=== PATIENT | female | born 1960 | race American Indian/Alaskan Native ===

== ENCOUNTER 2018-06-04 00:12 | Emergency (ER) | payer OTHER ==
[2018-06-04] MEDS ORDERED: ASPIRIN PO ONE (00:42)
[2018-06-04 00:58] LABS: Basophils % (Auto) 0.9 % (0.0-1.8); Eosinophils # (Auto) 0.3 K/mm3 (0.0-0.4); Eosinophils % (Auto) 5.6 % (0.0-4.3); Hematocrit 37.9 % (30.3-42.9); Hemoglobin 13.1 gm/dl (10.1-14.3); Lymphocytes # (Auto) 2.1 K/mm3 (1.2-5.4); Lymphocytes % (Auto) 42.2 % (13.4-35.0); Mean Corpuscular HGB Conc 35 % (30-34); Mean Corpuscular Volume 92 fl (79-97); Monocytes # (Auto) 0.2 K/mm3 (0.0-0.8); Monocytes % (Auto) 4.9 % (0.0-7.3); Platelet Count 221 K/mm3 (140-440); Red Cell Distribution Width 13.5 % (13.2-15.2)
[2018-06-04 01:29] LABS: BUN/Creatinine Ratio 25; Blood Urea Nitrogen 20 mg/dL (7-17); Calcium 8.9 mg/dL (8.4-10.2); Hemolysis Index 7
--- NOTE | 2018-06-04 01:31 | XRay Report ---
PROCEDURE: XR CHEST 1V AP TECHNIQUE: Chest radiograph single view. HISTORY: Chest Pain COMPARISONS: None . FINDINGS: Heart: Normal. Mediastinum/Vessels: Normal. Lungs/Pleural space: Normal. Bony thorax: No acute osseous abnormality. Life support devices: None. IMPRESSION: No acute cardiopulmonary abnormality. This document is electronically signed by Pastor Bar MD., June 04 2018 01:29:23 AM ET
[2018-06-04] MEDS ORDERED: IBUPROFEN PO ONE (03:57)
--- NOTE | 2018-06-04 03:57 | Emergency Department Report ---
ED Chest Pain HPI - General Chief Complaint: Chest Pain Stated Complaint: CHEST TIGHTNESS/LEFT LEG PAIN Time Seen by Provider: 06/04/18 02:30 Source: patient Mode of arrival: Ambulatory Limitations: No Limitations - History of Present Illness Initial Comments: Mrs. Daigle is a very pleasant healthy 57-year-old female with history of panic attacks who presents with left knee pain and chest pain. While walking she developed posterior left knee pain sharp pain. Mild swelling. No history of previous injury or arthritis. She then develop nondescript dull chest pain. Chest pain fleeting in nature. Not associated with inspiration or exertion. Severity scale (0 -10): 4 - Related Data Allergies Allergy/AdvReac Type Severity Reaction Status Date / Time No Known Allergies Allergy Verified 06/04/18 02:30 Heart Score - HEART Score History: Slightly suspicious EKG: Normal Age: 45-65 Risk factors: 1-2 risk factors Troponin: < normal limit HEART Score: 2 ED Review of Systems ROS: Stated complaint: CHEST TIGHTNESS/LEFT LEG PAIN Other details as noted in HPI Comment: All other systems reviewed and negative Constitutional: denies: fever Eyes: denies: eye discharge Respiratory: denies: cough Cardiovascular: chest pain ED Past Medical Hx - Past Medical History Previous Medical History?: Yes Hx Hypertension: Yes - Surgical History Past Surgical History?: Yes Additional Surgical History: Tonsillectomy - Social History Smoking Status: Never Smoker Substance Use Type: None ED Physical Exam - General Limitations: No Limitations General appearance: alert, in no apparent distress - Head Head exam: Present: atraumatic, normocephalic - Eye Eye exam: Present: normal appearance - ENT ENT exam: Present: mucous membranes moist - Neck Neck exam: Present: normal inspection, full ROM - Respiratory Respiratory exam: Present: normal lung sounds bilaterally. Absent: respiratory distress, wheezes, rales, rhonchi - Cardiovascular Cardiovascular Exam: Present: regular rate, normal rhythm, normal heart sounds. Absent: systolic murmur, diastolic murmur, rubs, gallop - GI/Abdominal GI/Abdominal exam: Present: soft, normal bowel sounds. Absent: distended, tenderness, guarding, rebound - Extremities Exam Extremities exam: Present: other (left knee +effusion +crepitus no erythema no tenderness full range of motion of laxity) - Back Exam Back exam: Present: normal inspection - Neurological Exam Neurological exam: Present: alert, oriented X3 - Psychiatric Psychiatric exam: Present: normal affect, normal mood - Skin Skin exam: Present: warm, dry, intact, normal color. Absent: rash ED Course Vital Signs 06/04/18 06/04/18 06/04/18 00:29 00:40 02:29 Temperature 97.6 F 97.6 F Pulse Rate 72 63 Respiratory 18 16 18 Rate Blood Pressure 182/90 Blood Pressure 182/90 [Left] O2 Sat by Pulse 98 99 Oximetry 06/04/18 02:47 Temperature Pulse Rate 66 Respiratory 14 Rate Blood Pressure 178/91 Blood Pressure [Left] O2 Sat by Pulse 99 Oximetry ED Medical Decision Making - Lab Data Result diagrams: 06/04/18 00:44 06/04/18 00:44 Laboratory Results - last 24 hr 06/04/18 06/04/18 06/04/18 00:44 00:44 03:29 WBC 5.1 RBC 4.10 Hgb 13.1 Hct 37.9 MCV 92 MCH 32 MCHC 35 H RDW 13.5 Plt Count 221 Lymph % (Auto) 42.2 H [place] % (Auto) 4.9 Eos % (Auto) 5.6 H Baso % (Auto) 0.9 Lymph # 2.1 [place] # 0.2 Eos # 0.3 Baso # 0.0 Seg Neutrophils % 46.4 Seg Neutrophils # 2.3 Sodium 142 Potassium 3.6 Chloride 104.6 Carbon Dioxide 25 Anion Gap 16 BUN 20 H Creatinine 0.8 Estimated GFR > 60 BUN/Creatinine Ratio 25 Glucose 105 H Calcium 8.9 Troponin T < 0.010 < 0.010 - EKG Data EKG shows normal: sinus rhythm, axis, intervals, QRS complexes, ST-T waves Rate: normal - Radiology Data Radiology results: report reviewed Chest x-ray: According to radiology report no acute process - Medical Decision Making Mr. Araiza presents with left knee pain and subsequent chest pain. Left knee pain likely due to degenerative joint disease. She has small joint effusion +crepitus. Recommend ibuprofen or Tylenol [id number]. Referred to orthopedic surgeon PERC rule negative for PE. Normal EKG. Serial troponin 2 negative. Ruled out for [facility] in the emergency department. Given reassurance. Critical care attestation.: If time is entered above; I have spent that time in minutes in the direct care of this critically ill patient, excluding procedure time. ED Disposition Clinical Impression: Left knee DJD, Chest pain Disposition: DC-01 TO HOME OR SELFCARE Is pt being admited?: No Does the pt Need Aspirin: No Condition: Stable Instructions: Chest Pain (ED), Osteoarthritis (ED) Referrals: BERTRAM MOCTEZUMA MD [Staff Physician] - 3-5 Days
[2018-06-04 04:23] VITALS: BP 180/90
== END 2018-06-04 04:29 | disposition home or self-care (01) ==
LOC: ED 00:12
DX: M17.12 Unilateral primary osteoarthritis, left knee (principal); R07.89 Other chest pain; F41.0 Panic disorder [episodic paroxysmal anxiety]; I10 Essential (primary) hypertension; Z90.89 Acquired absence of other organs
CPT/HCPCS: 36415; 71045; 80048; 84484; 85025; 93005; 93010; 99284

== ENCOUNTER 2018-11-11 17:39 | Inpatient (IN) | payer OTHER ==
--- NOTE | 2018-11-11 18:00 | Emergency Department Report ---
ED Neuro Deficit HPI - General Chief Complaint: Neuro Symptoms/Deficit Stated Complaint: TINGLING LT SIDE AND FACE Time Seen by Provider: 11/11/18 17:48 Source: patient Mode of arrival: Ambulatory Limitations: No Limitations - History of Present Illness Initial Comments: 58-year-old female with a past medical history of hypertension and borderline elevated cholesterol nonsmoker presents to the Hospital complaining of a heaviness in the left side of her face and tingling to the left face, left arm, and to lesser extent left leg respiratory minutes prior to arrival. Patient noticed her blood pressure was elevated. She cannot remember if he took her blood pressure medication earlier this morning. She is on lisinopril 10 mg/ hydrochlorothiazide 12.5 mg. She took 2 of these tablets prior to arrival when she knows her blood pressure was elevated. Patient also has a history of anxiety and states she is under a lot of stress lately. She recently moved here from [place] and does not have a primary care doctor. No pain reported. - Related Data Allergies/Adverse Reactions: Allergies Allergy/AdvReac Type Severity Reaction Status Date / Time No Known Allergies Allergy Verified 06/04/18 02:30 ED Review of Systems ROS: Stated complaint: TINGLING LT SIDE AND FACE Other details as noted in HPI Comment: All other systems reviewed and negative ED Past Medical Hx - Past Medical History Previous Medical History?: Yes Hx Hypertension: Yes - Surgical History Past Surgical History?: Yes Additional Surgical History: Tonsillectomy - Social History Smoking Status: Never Smoker Substance Use Type: None ED Neuro Physical Exam - General Limitations: No Limitations Suspected Stroke: Yes - NIHSS Assessment Interval: Baseline 1a. Level of Consciousness: alert/keenly responsive 1b. LOC Questions: answers both correctly 1c. LOC Commands: performs tasks correctly 2. Best Gaze: normal 3. Visual: no visual loss 4. Facial Palsy: normal symmetrical movement 5b. Motor Arm Right: no drift 5a. Motor Arm Left: no drift 6a. Motor Leg Left: no drift 6b. Motor Leg Right: no drift 7. Limb Ataxia: absent 8. Sensory: mild/moderate sensory loss 9. Best Language: no aphasia 10. Dysarthria: normal 11. Extinction/Inattention: no abnormality Total Score: 1 Stroke Severity: Minor Stroke - Other Other exam information: General: No acute distress Head: Atraumatic Eyes: Normal appearance, Pupils equal and reactive to light, extraocular movements intact ENT: Normal oropharynx Neck: Normal appearance, no posterior or midline tenderness, no meningismus Chest: Clear to auscultation bilaterally, no wheezes, rales, or crackles CV: Regular rate and rhythm Abdomen: soft, nontender, nondistended, no rebound or guarding Back: Nontender Extremity: Normal inspection, full range of motion, nontender Neuro: Alert and oriented 3, speech clear, see NIHSS Skin: No rash, redness, warmth ED Course Vital Signs 11/11/18 11/11/18 11/11/18 17:45 17:58 17:59 Temperature Pulse Rate 97 H 85 Respiratory 18 15 18 Rate Blood Pressure Blood Pressure 221/117 [Right] O2 Sat by Pulse 98 98 100 Oximetry 11/11/18 11/11/18 11/11/18 18:00 18:17 18:24 Temperature 98.3 F Pulse Rate 89 77 Respiratory 21 18 Rate Blood Pressure 201/102 186/104 Blood Pressure 186/104 [Right] O2 Sat by Pulse 99 100 Oximetry 11/11/18 11/11/18 11/11/18 18:31 18:45 19:01 Temperature Pulse Rate 77 84 Respiratory 14 18 Rate Blood Pressure 180/102 180/102 191/105 Blood Pressure [Right] O2 Sat by Pulse 98 100 100 Oximetry 11/11/18 11/11/18 11/11/18 19:15 19:31 19:45 Temperature Pulse Rate Respiratory Rate Blood Pressure 191/105 180/102 180/102 Blood Pressure [Right] O2 Sat by Pulse 99 99 100 Oximetry 11/11/18 11/11/18 11/11/18 20:00 20:30 21:43 Temperature Pulse Rate 71 71 77 Respiratory 16 11 L 20 Rate Blood Pressure 155/93 157/87 151/93 Blood Pressure [Right] O2 Sat by Pulse 99 100 99 Oximetry 11/11/18 22:00 Temperature Pulse Rate 84 Respiratory 13 Rate Blood Pressure 160/86 Blood Pressure [Right] O2 Sat by Pulse 99 Oximetry - Consultations Consultation #1: 11/11/18 18:[address] Reece neurologist after his examination. Pt is not a TPA candidate due to lack of significant deficits. Recommend blood pressure control treatment is systolic is greater than 200 and diastolic is greater than 110. - Lab Data Result diagrams: 11/11/18 17:58 11/11/18 17:58 Lab Results 11/11/18 11/11/18 11/11/18 Range/Units 17:50 17:58 17:58 WBC 6.2 (4.5-11.0) K/mm3 RBC 4.31 (3.65-5.03) M/mm3 Hgb 13.5 (10.1-14.3) gm/dl Hct 38.4 (30.3-42.9) % MCV 89 (79-97) fl MCH 31 (28-32) pg MCHC 35 H (30-34) % RDW 13.3 (13.2-15.2) % Plt Count 239 (140-440) K/mm3 Lymph % (Auto) 40.0 H (13.4-35.0) % [place] % (Auto) 4.3 (0.0-7.3) % Eos % (Auto) 3.0 (0.0-4.3) % Baso % (Auto) 1.2 (0.0-1.8) % Lymph # 2.5 (1.2-5.4) K/mm3 [place] # 0.3 (0.0-0.8) K/mm3 Eos # 0.2 (0.0-0.4) K/mm3 Baso # 0.1 (0.0-0.1) K/mm3 Seg Neutrophils % 51.5 (40.0-70.0) % Seg Neutrophils # 3.2 (1.8-7.7) K/mm3 PT 13.2 (12.2-14.9) Sec. INR 1.03 (0.87-1.13) APTT 27.2 (24.2-36.6) Sec. Thrombin Time (15.1-19.6) Sec. Sodium (137-145) mmol/L Potassium (3.6-5.0) mmol/L Chloride (98-107) mmol/L Carbon Dioxide (22-30) mmol/L Anion Gap mmol/L BUN (7-17) mg/dL Creatinine (0.7-1.2) mg/dL Estimated GFR ml/min BUN/Creatinine Ratio % Glucose (65-100) mg/dL POC Glucose 107 H (70-105) Calcium (8.4-10.2) mg/dL Troponin T (0.00-0.029) ng/mL 11/11/18 11/11/18 Range/Units 17:58 17:58 WBC (4.5-11.0) K/mm3 RBC (3.65-5.03) M/mm3 Hgb (10.1-14.3) gm/dl Hct (30.3-42.9) % MCV (79-97) fl MCH (28-32) pg MCHC (30-34) % RDW (13.2-15.2) % Plt Count (140-440) K/mm3 Lymph % (Auto) (13.4-35.0) % [place] % (Auto) (0.0-7.3) % Eos % (Auto) (0.0-4.3) % Baso % (Auto) (0.0-1.8) % Lymph # (1.2-5.4) K/mm3 [place] # (0.0-0.8) K/mm3 Eos # (0.0-0.4) K/mm3 Baso # (0.0-0.1) K/mm3 Seg Neutrophils % (40.0-70.0) % Seg Neutrophils # (1.8-7.7) K/mm3 PT (12.2-14.9) Sec. INR (0.87-1.13) APTT (24.2-36.6) Sec. Thrombin Time 18.4 (15.1-19.6) Sec. Sodium 143 (137-145) mmol/L Potassium 3.7 (3.6-5.0) mmol/L Chloride 104.1 (98-107) mmol/L Carbon Dioxide 25 (22-30) mmol/L Anion Gap 18 mmol/L BUN 21 H (7-17) mg/dL Creatinine 1.0 (0.7-1.2) mg/dL Estimated GFR > 60 ml/min BUN/Creatinine Ratio 21 % Glucose 111 H (65-100) mg/dL POC Glucose (70-105) Calcium 9.2 (8.4-10.2) mg/dL Troponin T < 0.010 (0.00-0.029) ng/mL - EKG Data -: EKG Interpreted by [place] EKG shows normal: sinus rhythm, axis (QRS 9), QRS complexes (QRSD 86), ST-T waves (NO STEMI/T INV) Rate: normal (76) - Radiology Data Radiology results: report reviewed CT head/brain wo con INDICATION: neuro deficits <6hrs or sx present upon awakening. TECHNIQUE: Routine CT head without contrast. Sagittal and coronal reformatted images were obtained. All CT scans at this location are performed using CT dose reduction for ALARA by means of automated exposure control. COMPARISON: None. FINDINGS: BRAIN / INTRACRANIAL CONTENTS: I do not see hemorrhage (intracerebral hemorrhage, subarachnoid hemorrhage or subdural or epidural) or hemorrhagic lesion. I do not see CT findings to suggest acute territorial infarction. Basal ganglia, insular cortex, nash matter white matter differentiation are normal. I do not see CT findings to suggest occluded internal carotid artery termination is middle cerebral artery. One of the branches of left middle cerebral artery in the sylvian fissure has increased CT density. No acute hemorrhage, mass effect, midline shift, hydrocephalus, or acute, large territorial infarct. No chronic infarct or focal atrophy. Normal brain volume and ventricular/sulcal size for age. No significant white matter abnormality. Focal calcific density is seen at the foramina of Johanne. This appears to be calcification in the choroid plexus. Lateral ventricles and third ventricle are normal. Volume loss is seen in the cerebellar vermis. CRANIOCERVICAL JUNCTION: No significant abnormality. ORBITS: No significant abnormality of visualized orbits. SINUSES / MASTOIDS: No significant abnormality of the visualized paranasal sinus es or mastoid air cells. ADDITIONAL FINDINGS: None. IMPRESSION: I do not see CT findings to suggest acute territorial infarction or hemorrhage - Medical Decision Making pt to admitted for stroke workup mild sensory tingling on left side ct had unremarkable bp trending down with meds taken machine captain case d/w neuro and rec bp meds if sbp>200, diastolic >110 asa given in ed hospitalist to admit - Differential Diagnosis cva, ich, htn emergency, anxiety, stress, radiculopathy Critical Care Time: No Critical care attestation.: If time is entered above; I have spent that time in minutes in the direct care of this critically ill patient, excluding procedure time. ED Disposition Clinical Impression: Numbness and tingling, Uncontrolled hypertension Disposition: OP ADMIT IP TO THIS HOSP Is pt being admited?: Yes Condition: Stable Time of Disposition: 18:38
[2018-11-11 18:08] LABS: Basophils # (Auto) 0.1 K/mm3 (0.0-0.1); Basophils % (Auto) 1.2 % (0.0-1.8); Eosinophils # (Auto) 0.2 K/mm3 (0.0-0.4); Hematocrit 38.4 % (30.3-42.9); Hemoglobin 13.5 gm/dl (10.1-14.3); Lymphocytes # (Auto) 2.5 K/mm3 (1.2-5.4); Mean Corpuscular HGB Conc 35 % (30-34); Mean Corpuscular Volume 89 fl (79-97); Monocytes # (Auto) 0.3 K/mm3 (0.0-0.8); Monocytes % (Auto) 4.3 % (0.0-7.3); Platelet Count 239 K/mm3 (140-440); Red Blood Count 4.31 M/mm3 (3.65-5.03); Red Cell Distribution Width 13.3 % (13.2-15.2)
--- NOTE | 2018-11-11 18:09 | Emergency Department Report ---
ED Neuro Deficit HPI - General Chief Complaint: Neuro Symptoms/Deficit Stated Complaint: TINGLING LT SIDE AND FACE Time Seen by Provider: 11/11/18 17:48 Source: patient Mode of arrival: Ambulatory Limitations: No Limitations - History of Present Illness Initial Comments: [facility] Date of Service: 11/11/2018 17:47:04 Impression: Right Hemispheric Mechanism of Stroke: Possible Thromboembolic Possible Cardioembolic Small Vessel Disease Metrics: Last Known Well: 11/11/2018 17:00:40 [employer] Notification Time: 11/11/2018 17:46:06 Arrival Time: 11/11/2018 17:39:53 Stamp Time: 11/11/2018 17:47:04 Time First Login Attempt: 11/11/2018 17:56:05 Video Start Time: 11/11/2018 17:56:05 Symptoms: left sided numbness NIHSS Start Assessment Time: 11/11/2018 18:00:42 Patient is not a candidate for tPA. Patient was not deemed candidate for tPA thrombolytics because of NIHSS 1 with nondisabling symptoms. . Video End Time: 11/11/2018 18:06:22 CT head was reviewed. Advanced imaging was not obtained as the presentation was not suggestive of Large Vessel Occlusive Disease. ER physician not notified of the decision on thrombolytics management. Comments: acute left sided numbness - concerning or right parietal/subcortical stroke. Recommend admission for stroke workup. Our recommendations are outlined below. Recommendations: Initiate Aspirin 325 MG Daily Recommended Scan: MRI Head MRA Head and Neck Without Contrast When Available - Stroke Protocol Lipid Panel to Be Obtained, if Not Done in the Last Three Months Therapies: Physical Therapy, Occupational Therapy, Speech Therapy Assessment When Applicable Dysphaghia Screen: Swallow Evaluation, Bedside NPO Until Swallow Evaluation DVT prophylaxis: Lovenox or LMW Heparin Disposition: Follow up with Teleneurology Follow up Sign Out: Discussed with Emergency Department Provider History of Present Illness: Patient is a 58 years old Female. Patient was brought by EMS for symptoms of left sided numbness yo woman with acute onset left sided numbness starting at approx 1700. No LOC/convulsion. No trouble speaking/swallowing. No hx of stroke/TN. She takes ASA daily. CT head was reviewed. Examination: 1A: Level of Consciousness - Alert; keenly responsive + 0 1B: Ask Month and Age - Both Questions Right + 0 1C: Blink Eyes & Squeeze Hands - Performs Both Tasks + 0 2: Test Horizontal Extraocular Movements - Normal + 0 3: Test Visual Kamara - No Visual Loss + 0 4: Test Facial Palsy (Use Grimace if Obtunded) - Normal symmetry + 0 5A: Test Left Arm Motor Drift - No Drift for 10 Seconds + 0 5B: Test Right Arm Motor Drift - No Drift for 10 Seconds + 0 6A: Test Left Leg Motor Drift - No Drift for 5 Seconds + 0 6B: Test Right Leg Motor Drift - No Drift for 5 Seconds + 0 7: Test Limb Ataxia (FNF/Heel-Martinez) - No Ataxia + 0 8: Test Sensation - Mild-Moderate Loss: Less Sharp/More Dull + 1 9: Test Language/Aphasia - Normal; No aphasia + 0 10: Test Dysarthria - Normal + 0 11: Test Extinction/Inattention - No abnormality + 0 NIHSS Score: 1 Patient was informed the Neurology Consult would happen via TeleHealth consult by way of interactive audio and video telecommunications and consented to recei [facility] care in this manner. Due to the immediate potential for life-threatening deterioration due to underlying acute neurologic illness, I spent 35 minutes providing critical care. This time includes time for face to face visit via telemedicine, review of medical records, imaging studies and discussion of findings with providers, the patient and/or family. Dr Gabino Reece [employer] - Related Data Allergies/Adverse Reactions: Allergies Allergy/AdvReac Type Severity Reaction Status Date / Time No Known Allergies Allergy Verified 06/04/18 02:30 ED Review of Systems ROS: Stated complaint: TINGLING LT SIDE AND FACE Other details as noted in HPI ED Past Medical Hx - Past Medical History Previous Medical History?: Yes Hx Hypertension: Yes - Surgical History Past Surgical History?: Yes Additional Surgical History: Tonsillectomy - Social History Smoking Status: Never Smoker Substance Use Type: None ED Neuro Physical Exam - General Limitations: No Limitations Suspected Stroke: Yes - NIHSS Assessment Interval: Baseline 1a. Level of Consciousness: alert/keenly responsive 1b. LOC Questions: answers both correctly 1c. LOC Commands: performs tasks correctly 2. Best Gaze: normal 3. Visual: no visual loss 4. Facial Palsy: normal symmetrical movement 5b. Motor Arm Right: no drift 5a. Motor Arm Left: no drift 6a. Motor Leg Left: no drift 6b. Motor Leg Right: no drift 7. Limb Ataxia: absent 8. Sensory: mild/moderate sensory loss 9. Best Language: no aphasia 10. Dysarthria: normal 11. Extinction/Inattention: no abnormality Total Score: 1 Stroke Severity: Minor Stroke ED Course Vital Signs 11/11/18 11/11/18 17:45 17:59 Pulse Rate 97 H Respiratory 18 18 Rate Blood Pressure 221/117 [Right] O2 Sat by Pulse 98 100 Oximetry - Lab Data Lab Results 11/11/18 Range/Units 17:50 POC Glucose 107 H (70-105) Critical care attestation.: If time is entered above; I have spent that time in minutes in the direct care of this critically ill patient, excluding procedure time. ED Disposition Clinical Impression: Numbness and tingling Disposition: DC-09 OP ADMIT IP TO THIS HOSP Is pt being admited?: Yes Condition: Stable
[2018-11-11] MEDS ORDERED: ASPIRIN PO ONE (18:12)
--- NOTE | 2018-11-11 18:16 | Cat Scan Report ---
CT head/brain wo con INDICATION: neuro deficits <6hrs or sx present upon awakening. TECHNIQUE: Routine CT head without contrast. Sagittal and coronal reformatted images were obtained. A ll CT scans at this location are performed using CT dose reduction for ALARA by means of automated ex posure control. COMPARISON: None. FINDINGS: BRAIN / INTRACRANIAL CONTENTS: I do not see hemorrhage (intracerebral hemorrhage, subarachnoid hemorrhage or subdural or epidural) o r hemorrhagic lesion. I do not see CT findings to suggest acute territorial infarction. Basal ganglia, insular cortex, nash matter white matter differentiation are normal. I do not see CT findings to suggest occluded internal carotid artery termination is middle cerebral a rtery. One of the branches of left middle cerebral artery in the sylvian fissure has increased CT den sity. No acute hemorrhage, mass effect, midline shift, hydrocephalus, or acute, large territorial infarct. No chronic infarct or focal atrophy. Normal brain volume and ventricular/sulcal size for age. No sign ificant white matter abnormality. Focal calcific density is seen at the foramina of Johanne. This appears to be calcification in the chor oid plexus. Lateral ventricles and third ventricle are normal. Volume loss is seen in the cerebellar vermis. CRANIOCERVICAL JUNCTION: No significant abnormality. ORBITS: No significant abnormality of visualized orbits. SINUSES / MASTOIDS: No significant abnormality of the visualized paranasal sinuses or mastoid air everardo ls. ADDITIONAL FINDINGS: None. IMPRESSION: I do not see CT findings to suggest acute territorial infarction or hemorrhage Code stroke protocol; discussed findings with the ER physician at 5:08 PM [employer] Signer Name: Tejinder Del Castillo MD Signed: 11/11/2018 6:11 PM Workstation Name: [email or web address]
[2018-11-11 18:27] LABS: BUN/Creatinine Ratio 21; Blood Urea Nitrogen 21 mg/dL (7-17); Calcium 9.2 mg/dL (8.4-10.2); Hemolysis Index 4; INR 1.03 (0.87-1.13); Partial Thromboplastin Time 27.2 Sec. (24.2-36.6)
--- NOTE | 2018-11-11 21:42 | History and Physical Report ---
History of Present Illness Date of examination: 11/11/18 History of present illness: 58-year-old and a history of hypertension, hyperlipidemia, anxiety comes emergency room with complaints of left sided numbness including her face. Stated that her blood pressure has been elevated, she took antihypertensive prior to coming here. At times her blood pressures were high at home and she was the dose of her antihypertensive at least once a week. He is undergoing a lot of stress recently eview Of Systems: Constitutional: no weight loss, fever, chills Ears, eyes, nose, mouth and throat: no nasal congestion, no nasal discharge, no sinus pressure, blurry vision, diplopia Neck: No neck pain or rigidity. Cardiovascular: No palpitations, chest pain Respiratory: No shortness of breath, cough Gastrointestinal: No hematochezia, abdominal pain Genitourinary : no dysuria, frequency , hematuria Musculoskeletal: no muscle ache , joint pain Integumentary: no rash, no pruritis Neurological: no focal weakness Endocrine: no cold or heat intolerance, no polyuria or polydipsia Hematologic/Lymphatic: no easy bruising, no easy bleeding, no gland swelling Allergic/Immunologic: no urticaria, no angioedema. PAST MEDICAL HISTORY:hypertension, hyperlipidemia, anxiety PAST SURGICAL HISTORY: Tonsillectomy FAMILY HISTORY:hypertension, diabetes SOCIAL HISTORY: Denies tobacco, drugs, alcohol Medications and Allergies Allergies Allergy/AdvReac Type Severity Reaction Status Date / Time No Known Allergies Allergy Verified 06/04/18 02:30 Exam - Physical Exam Narrative exam: General Apperance: The patient sitting in bed no acute distress HEENT: Normocephalic, atraumatic. Pupils equally round and reactive to light, extraocular movement intact, and no sclericterus or JVD or thyromegaly or nodule. Neck supple, no carotid bruit, mucous membranes moist, no exudate or erythema Heart: S1-S2, regular is rhythm Lungs: Clear to auscultation bilaterally, breathing comfortable Abdomen: Positive bowel sounds, soft, nontender, nondistended, no organomegaly Extremities: No edema cyanosis clubbing Skin: no rash, nodule, warm and dry Neuro:CN 2 -12 intact, motor/sensory intact, speech is fluent - Constitutional Vitals: Temp Pulse Resp BP Pulse Ox 98.3 F 71 16 155/93 99 11/11/18 18:24 11/11/18 20:00 11/11/18 20:00 11/11/18 20:00 11/11/18 20:00 Results - Labs CBC & Chem 7: 11/11/18 17:58 11/11/18 17:58 Labs: Abnormal lab results 11/11/18 11/11/18 11/11/18 Range/Units 17:50 17:58 17:58 MCHC 35 H (30-34) % Lymph % (Auto) 40.0 H (13.4-35.0) % BUN 21 H (7-17) mg/dL Glucose 111 H (65-100) mg/dL POC Glucose 107 H (70-105) - Imaging and Cardiology EKG: image reviewed CT Scan - head: report reviewed Assessment and Plan Assessment TIA versus hypertensive urgency Hypertension uncontrolled Hyperlipidemia Plan Admit to medicine Obtain MRI of the head, and neck, echo Start aspirin, statin IV hydralazine as needed for blood pressure 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
[2018-11-11] MEDS ORDERED: ZOFRAN IV PRN (22:27)
[2018-11-11] MEDS ORDERED: TYLENOL PO PRN (22:27)
[2018-11-11] MEDS ORDERED: SODIUM CHLORIDE FLUSH SYRINGE 10 ML IV PRN (22:27)
[2018-11-11] MEDS ORDERED: PHENERGAN PR PRN (22:27)
[2018-11-11] MEDS ORDERED: REGLAN PO PRN (22:27)
[2018-11-11] MEDS ORDERED: MILK OF MAGNESIA PO PRN (22:27)
[2018-11-11] MEDS ORDERED: DULCOLAX PR PRN (22:27)
[2018-11-11] MEDS ORDERED: APRESOLINE IV PRN (22:32)
--- NOTE | 2018-11-12 00:21 | Consultation ---
IDENTIFICATION: A 58-year-old female. HISTORY OF PRESENT ILLNESS: This patient is a 58-year-old black female who presents with left facial numbness and tingling presented to the Emergency Room with continued symptoms of left-sided weakness. After presented to the hospital, she was complaining of some speech difficulty, left-sided weakness, numbness, difficulty with coordination of the left side of her body. Initial CT scan was obtained as a stroke alert. I reviewed over the CT scan, it shows very mild cortical frontal atrophy, but otherwise no evidence of edema, hemorrhage or shift. There are no lacunar infarcts. Galvez white matter normal in size and appearance. No focal abnormalities are present. 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 Overall, the CT scan has a normal pattern for 58 years of age. Further workup is pending. The patient is to see Dr. Maynard for assessment, results of labs are pending seems to be in triage, so detailed information is not immediately accessible at this point, has not been placed in the record. This will be reviewed at some point to leave a more detailed note. At this point, the patient does not appear to have any hemorrhagic lesion, any acute intracranial process and is currently stable for further assessment and analysis of workup for stroke alert. JOB# [id number] KIRSTY/BRYN
[2018-11-12 09:02] LABS: Chol/HDL Ratio 2.03 %
[2018-11-12] MEDS: ASPIRIN PO SCH (09:37)
[2018-11-12] MEDS: LOVENOX SUB-Q SCH (09:38)
--- NOTE | 2018-11-12 09:49 | Progress Note ---
Subjective Date of service: 11/12/18 Interval history: see my note from the code stroke yesterday suspect TIA doubt seizure Objective - Vital Sign Vital Signs - 12hr 11/11/18 11/11/18 11/11/18 22:00 22:30 22:41 Temperature Pulse Rate 84 85 84 Pulse Rate [ Left Radial] Pulse Rate [ Right Radial] Respiratory 13 15 18 Rate Blood Pressure 160/86 170/86 170/86 O2 Sat by Pulse 99 99 99 Oximetry 11/11/18 11/11/18 11/11/18 22:51 22:55 23:00 Temperature Pulse Rate 81 76 83 Pulse Rate [ 76 Left Radial] Pulse Rate [ 76 Right Radial] Respiratory 16 20 17 Rate Blood Pressure 170/86 165/89 O2 Sat by Pulse 97 100 98 Oximetry 11/11/18 11/12/18 11/12/18 23:18 04:52 06:55 Temperature 98.0 F 98.0 F Pulse Rate 76 69 64 Pulse Rate [ Left Radial] Pulse Rate [ Right Radial] Respiratory 18 18 Rate Blood Pressure 165/86 121/68 O2 Sat by Pulse 99 96 Oximetry 11/12/18 07:33 Temperature 99.1 F Pulse Rate 64 Pulse Rate [ Left Radial] Pulse Rate [ Right Radial] Respiratory 18 Rate Blood Pressure 124/84 O2 Sat by Pulse 99 Oximetry - Laboratory Findings CBC and BMP: 11/11/18 17:58 11/11/18 17:58 Abnormal Lab Findings: Abnormal Labs 11/11/18 11/11/18 11/11/18 17:50 17:58 17:58 MCHC 35 H Lymph % (Auto) 40.0 H BUN 21 H Glucose 111 H POC Glucose 107 H HDL Cholesterol 11/12/18 07:50 MCHC Lymph % (Auto) BUN Glucose POC Glucose HDL Cholesterol 85 H
--- NOTE | 2018-11-12 17:16 | Progress Note ---
Assessment and Plan TIA versus hypertensive emergency Hypertension uncontrolled - BP was 221/117 Hyperlipidemia Medication noncompliance DVT prophylaxis Plan -Continue to monitor the patient to remote telemetry -Continue on aspirin and statin, will consult neurology - CT scan of the head obtained in the ER and shows no acute finding - We will get MRI of the head, carotid Doppler, 2-D echocardiogram - We will also get hemoglobin A1c level and fasting lipid panel - We'll place on GI prophylaxis to avoid stress ulcer - IV hydralazine as needed for blood pressure control - DVT prophylaxis Brief History: 58-year-old and a history of hypertension, hyperlipidemia, anxiety comes emergency room with complaints of left sided numbness including her face. Stated that her blood pressure has been elevated, she took antihypertensive p rior to coming here. Patient was admitted with stroke protocol. Radiological data: CT head: No acute abnormality Hospitalist Physical exam: GENERAL: well-developed and well-nourished AAF lying on bed appeared to be in no discomfort. HEENT: Normocephalic. Atraumatic. No conjunctival congestion or icterus. Patient has moist mucous membranes. NECK: Supple. Trachea midline. CHEST/LUNGS: Clear to auscultated bilaterally, breathing nonlabored. No wheezes crackles or rhonchi. HEART/CARDIOVASCULAR: Regular in rate and rhythm. S1 and S2 positive. ABDOMEN: Abdomen is soft, nontender. Patient has normal bowel sounds. SKIN: There is no rash. Warm and dry. NEURO: No focal motor deficit. Follows command. MUSCULOSKELETAL: No joint effusion or tenderness. EXTRIMITY: No edema, no cyanosis or clubbing. PSYCH: Cooperative. Subjective Date of service: 11/12/18 Interval history: Patient seen and examined. Medical records and medication list reviewed. No acute event overnight noted by the RN. Patient denies any chest pain or difficulty breathing. Patient is tolerating diet. Discussed plan of care at bedside with patient. Objective - Constitutional Vitals: Vital Signs - 12hr 11/12/18 11/12/18 11/12/18 06:55 07:33 10:17 Temperature 99.1 F Pulse Rate 64 64 Respiratory 18 Rate Blood Pressure 124/84 O2 Sat by Pulse 99 97 Oximetry 11/12/18 11/12/18 11/12/18 12:29 14:24 16:22 Temperature 98.3 F 98.3 F Pulse Rate 68 75 Respiratory 18 18 Rate Blood Pressure 130/77 136/66 134/75 O2 Sat by Pulse 95 98 Oximetry - Labs CBC & Chem 7: 11/11/18 17:58 11/11/18 17:58 Labs: Abnormal lab results 11/11/18 11/11/18 11/11/18 Range/Units 17:50 17:58 17:58 MCHC 35 H (30-34) % Lymph % (Auto) 40.0 H (13.4-35.0) % BUN 21 H (7-17) mg/dL Glucose 111 H (65-100) mg/dL POC Glucose 107 H (70-105) HDL Cholesterol (40-59) mg/dL 11/12/18 Range/Units 07:50 MCHC (30-34) % Lymph % (Auto) (13.4-35.0) % BUN (7-17) mg/dL Glucose (65-100) mg/dL POC Glucose (70-105) HDL Cholesterol 85 H (40-59) mg/dL
--- NOTE | 2018-11-13 07:59 | Progress Note ---
Subjective Date of service: 11/13/18 Interval history: brief episode of left sided numbness that resolved await MRI today suspect TIA w/u is pending plan to follow up Thanks Objective - Vital Sign Vital Signs - 12hr 11/12/18 11/12/18 11/12/18 20:50 21:36 21:37 Temperature 97.4 F L Pulse Rate 75 80 Respiratory 18 Rate Blood Pressure 144/80 O2 Sat by Pulse 96 Oximetry 11/13/18 11/13/18 11/13/18 00:40 00:41 06:07 Temperature 98.2 F Pulse Rate 90 68 Respiratory 18 18 Rate Blood Pressure 121/64 131/70 O2 Sat by Pulse 95 97 Oximetry 11/13/18 06:08 Temperature 97.6 F Pulse Rate Respiratory Rate Blood Pressure O2 Sat by Pulse Oximetry - Laboratory Findings CBC and BMP: 11/11/18 17:58 11/11/18 17:58 Abnormal Lab Findings: Abnormal Labs 11/11/18 11/11/18 11/11/18 17:50 17:58 17:58 MCHC 35 H Lymph % (Auto) 40.0 H BUN 21 H Glucose 111 H POC Glucose 107 H HDL Cholesterol 11/12/18 07:50 MCHC Lymph % (Auto) BUN Glucose POC Glucose HDL Cholesterol 85 H
--- NOTE | 2018-11-13 10:59 | Magnetic Resonance Report ---
MRA HEAD WITHOUT CONTRAST INDICATION / CLINICAL INFORMATION: stroke. TECHNIQUE: Routine MRA of the head is performed. 3-D/MIP reformats postprocessed. COMPARISON: Head CT on 11/11/2018. FINDINGS: Intracranial vertebral arteries: No significant abnormality. Basilar artery: No significant abnormality. Posterior cerebral arteries: There is development of origin of the right posterior cerebral art brigette. Intracranial internal carotid arteries: No significant abnormality. Anterior cerebral arteries: No significant abnormality. Middle cerebral arteries: No significant abnormality. Additional findings: None. IMPRESSION: 1. No significant stenosis or large vessel occlusion of the intracranial arteries. Signer Name: Hunter Palencia MD Signed: 11/13/2018 10:54 AM Workstation Name: [id number]
--- NOTE | 2018-11-13 11:01 | Magnetic Resonance Report ---
MRI BRAIN WITHOUT CONTRAST INDICATION / CLINICAL INFORMATION: Seizure. TECHNIQUE: Multiplanar, multisequence MR images of the brain were obtained. COMPARISON: Head CT on 11/11/2018. FINDINGS: BRAIN / INTRACRANIAL CONTENTS: No acute ischemia, acute hemorrhage, mass effect, midline shift, or hy drocephalus. No chronic infarct or significant atrophy. No significant demyelinating changes. CRANIOCERVICAL JUNCTION: No significant abnormality. VASCULAR FLOW-VOIDS: No significant abnormality. ORBITS: No significant abnormality of visualized orbits. SINUSES / MASTOIDS: There is mild mucosal thickening in the right maxillary sinus. ADDITIONAL FINDINGS: None. IMPRESSION: 1. No acute findings. No findings to explain seizures or cecal of seizures. Signer Name: Hunter Palencia MD Signed: 11/13/2018 10:57 AM Workstation Name: [id number]
[2018-11-13] MEDS: ASPIRIN PO SCH (11:41)
[2018-11-13] MEDS: LOVENOX SUB-Q SCH (11:42)
[2018-11-13 12:41] VITALS: BP 155/85
--- NOTE | 2018-11-13 15:25 | Discharge Summary ---
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 Stated that her blood pressure has been elevated, she took antihypertensive prior to coming here. Patient was admitted with stroke protocol. Radiological data: CT head: No acute abnormality MRI brain: 1. No acute findings. No findings to explain seizures or cecal of seizures. Discharge diagnosis: TIA versus hypertensive emergency Hypertension uncontrolled - BP was 221/117 Hyperlipidemia Medication noncompliance DVT prophylaxis Plan -Continue to monitor the patient to remote telemetry -Continue on aspirin and statin, will consult neurology - CT scan of the head obtained in the ER and shows no acute finding - We will get MRI of the head, carotid Doppler, 2-D echocardiogram - We will also get hemoglobin A1c level and fasting lipid panel - We'll place on GI prophylaxis to avoid stress ulcer - IV hydralazine as needed for blood pressure control - DVT prophylaxis Hospitalist Physical exam: GENERAL: well-developed and well-nourished AAF lying on bed appeared to be in no discomfort. HEENT: Normocephalic. Atraumatic. No conjunctival congestion or icterus. Patient has moist mucous membranes. NECK: Supple. Trachea midline. CHEST/LUNGS: Clear to auscultated bilaterally, breathing nonlabored. No wheezes crackles or rhonchi. HEART/CARDIOVASCULAR: Regular in rate and rhythm. S1 and S2 positive. ABDOMEN: Abdomen is soft, nontender. Patient has normal bowel sounds. SKIN: There is no rash. Warm and dry. NEURO: No focal motor deficit. Follows command. MUSCULOSKELETAL: No joint effusion or tenderness. EXTRIMITY: No edema, no cyanosis or clubbing. PSYCH: Cooperative. Disposition: - TO HOME OR SELFCARE Time spent for discharge: 34 minutes Core Measure Documentation - Palliative Care Palliative Care/ Comfort Measures: Not Applicable - Core Measures Any of the following diagnoses?: stroke - Stroke Discharge Requirements Statin for LDL = or >70 mg/dl on DC: Yes Anticoag for atrial fib/atrial flutter: Not Applicable Antithrombotic for ischemic stroke: Yes Exam - Constitutional Vitals: Temp Pulse Resp BP Pulse Ox 98.0 F 64 16 155/85 99 11/13/18 12:38 11/13/18 12:38 11/13/18 12:38 11/13/18 12:38 11/13/18 12:38 Plan Activity: advance as tolerated Weight Bearing Status: Weight Bear as Tolerated Diet: low fat, low salt Special Instructions: record daily BP diary Follow up with: PRIMARY CARE, [Primary Care Provider] - 3-5 Days GRECIA SHETH MD [Staff Physician] - 7 Days Prescriptions: AtorvaSTATin [Lipitor] 40 mg PO QHS #30 tablet Aspirin EC [Halfprin EC] 81 mg PO QDAY #30 tablet. Lisinopril/Hydrochlorothiazide [Zestoretic 10-12.5 mg Tablet] 10 - 12.5 mg PO QDAY #30 tablet
--- NOTE | 2018-11-13 15:59 | Progress Note ---
Subjective Date of service: 11/13/18 Interval history: the MRI/MRA are entirely normal and no focal stenosis of severe narrowing on the vascular studies... the MRI is also very nermal with no atrophy suspevt TIA plan discharge I will follow up in the office Objective - Vital Sign Vital Signs - 12hr 11/13/18 11/13/18 11/13/18 06:07 06:08 07:48 Temperature 97.6 F 98.0 F Pulse Rate 68 71 Respiratory 18 14 Rate Blood Pressure 131/70 119/65 O2 Sat by Pulse 97 94 Oximetry 11/13/18 11/13/18 12:00 12:38 Temperature 98.0 F Pulse Rate 74 64 Respiratory 16 Rate Blood Pressure 155/85 O2 Sat by Pulse 99 Oximetry - Laboratory Findings CBC and BMP: 11/11/18 17:58 11/11/18 17:58 Abnormal Lab Findings: Abnormal Labs 11/11/18 11/11/18 11/11/18 17:50 17:58 17:58 MCHC 35 H Lymph % (Auto) 40.0 H BUN 21 H Glucose 111 H POC Glucose 107 H HDL Cholesterol 11/12/18 07:50 MCHC Lymph % (Auto) BUN Glucose POC Glucose HDL Cholesterol 85 H
== END 2018-11-13 17:00 | disposition home or self-care (01) | DRG 69 ==
LOC: ED 17:39 → 4A 21:41
PROVIDERS: ADMIT Internal Medicine; ATTEND Internal Medicine
DX: G45.9 Transient cerebral ischemic attack, unspecified (principal); I16.1 Hypertensive emergency; R20.0 Anesthesia of skin; I10 Essential (primary) hypertension; E78.5 Hyperlipidemia, unspecified; F41.9 Anxiety disorder, unspecified; G31.9 Degenerative disease of nervous system, unspecified; Z91.14 Patient's other noncompliance with medication regimen
CPT/HCPCS: 36415; 70450; 70544; 70551; 80048; 80061; 82962; 83036; 84484; 85025; 85610; 85670; 85730; 93005; 93010; 93306; G0378; A9270-GY; J1650